=== PATIENT | female | born 1935 | race Caucasian/White ===

== ENCOUNTER 2016-07-12 20:37 | Inpatient (IN) | payer MEDICARE, OTHER ==
[2016-07-12 20:40] VITALS: BP 151/61; PULSE 79; RESP 12; O2SAT 97
--- NOTE | 2016-07-12 20:40 | ED.REPORT ---
HPI-Neurologic Deficit Date of Service Jul 12, 2016 ED Provider: Dr. Merritt Genao MD An 81 year old female with a history of type II diabetes mellitus presents to the ED with stroke like symptoms that began at approx. 1430 this afternoon. Patient's last known normal was 1400. Patient presented with dysarthria, disorientation and difficulty ambulating. Her symptoms initially appeared just after 1400, but remained persistent throughout the evening. Daughter reports that the patient returned from an errand around 1700 and appeared agitated. Patient took a nap and woke up with symptoms still present. She currently takes glucamide. Family denies any cardiac history. Nursing Notes Stated Complaint: STROKE SYMPTOMS Nursing Notes Reviewed: Yes Allergies: Coded Allergies: No Known Allergies (Unverified , 07/12/16) General Time Seen by Provider: 20:40 Chief Complaint Other (Dysarthria) Hx Obtained From: Daughter Arrived By: Walk-in Sudden in Onset?: No (Last Known Well 1400) Onset Occurred: 5 - 8 hours ago Symptom Duration: Since onset Progression Since Onset: Unchanged Associated with: Reports: Balance problem Pertinent Negative: Pt denies other symptoms Recent Healthcare: No recent doctor visit, No recent hospitalization Risk Factors TPA Administration/Criteria Stroke Thrombolytic Therapy : TPA Administered Intravenously: No, exclusion criteria Past Medical History Past Medical History Notes: PCP: Dr. Dickens Past Medical History Diabetes Mellitus Past Surgical History Hysterectomy Smoking History Never Smoker Social History Alcohol Use: Denies alcohol use Other Social History: Good social support, Local resident Ambulatory Status Independent Review of Systems Review of Systems Note: Limited ROS per daughter Unable to Obtain ROS Patient condition Constitutional: Denies: Chills, Fever Respiratory: Denies: Shortness of breath GI: Denies: Vomiting Neurologic: Reports: Confusion (Disoriented ), Problem walking, Denies: Change LOC Psychiatric: Reports: Agitation Complete sys rev & neg: except as marked. Physical Exam Physical Exam Notes: Elderly female who is quite agitated. She does not follow commands, eyes are open spontaneously she does not answer orientation questions. Verbalizes repeatedly it hurts it hurts and hurts pointing to her AC intravenous line. She does the same thing and points to her blood pressure cuff. There is no consistent other reference to pain and no consistent response to palpation that would indicate pain. A stroke scale was attempted however the patient's agitation and limited cooperation making impossible. Initial Vital Signs Vital Signs (First) Date Time Temp Pulse Resp B/P Pulse Ox O2 Delivery O2 Flow Rate FiO2 07/12/16 20:40 79 12 151/61 97 Room Air Initial VS: Reviewed Extremities: Vascular intact, Neuro intact, No swelling, No tenderness Skin: Warm, Dry, No cyanosis General/Constitutional: Awake, Alert Behavior: Positive: Agitated (Upon examination ) Head / Eyes: Atraumatic, Normocephalic Respiratory / Chest: Atraumatic, Breath sounds NL, Breath sounds = bilat, No respiratory distress Cardiovascular: Heart rate NL, Regular rhythm, Heart sounds NL Neurologic: No motor deficits Mental Status: Positive: Confused NEURO: Unable to perform complete NIH stroke scale due to patient cooperatioon. No gross motor deficits appreciated Abdomen: Atraumatic, Soft, Non-tender Skin: Atraumatic, Color NL, Warm, Dry Interpretation & Diagnostics Lab Results Interpretation Result Diagram: 07/12/16 2100 07/12/16 2100 Test 07/12/16 21:00 07/12/16 21:30 White Blood Count 7.0th/mm3 (3.8-10.1) Red Blood Count 4.19mil/mm3 (3.90-5.20) Hemoglobin 13.4g/dL (12.0-15.6) Hematocrit 38.1% (35.0-46.0) Mean Corpuscular Volume 90.9fL (81-100) Mean Corpuscular Hemoglobin 32.0pg (27.0-35.0) Mean Corpuscular Hemoglobin Concent 35.2% (32.0-37.0) Red Cell Distribution Width 12.5% (12.3-15.4) Platelet Count 209bil/L (150-400) Neutrophils (%) (Auto) 53.1% (40-74) Lymphocytes (%) (Auto) 35.9% (14-46) Monocytes (%) (Auto) 7.1% (4-12) Eosinophils (%) (Auto) 3.1% (0-5) Basophils (%) (Auto) 0.7% (0-3) Prothrombin Time 11.3sec (8.1-12.5) Prothromb Time International Ratio 1.05ratio Activated Partial Thromboplast Time 24.6sec (22.8-33.0) Sodium Level 138mEq/L (134-144) Potassium Level 4.4mEq/L (3.5-5.2) Chloride Level 99mEq/L (97-108) Carbon Dioxide Level 21mmol/L (18-29) Blood Urea Nitrogen 31mg/dL (8-27) Creatinine 0.95mg/dL (0.57-1.00) Estimat Glomerular Filtration Rate 80mL/min (>59) Glucose Level 175mg/dL (60-99) Calcium Level 10.4mg/dL (8.5-10.1) Total Bilirubin 0.8mg/dL (0.0-1.2) Aspartate Amino Transf (AST/SGOT) 22U/L (0-50) Alanine Aminotransferase (ALT/SGPT) 20U/L (0-32) Alkaline Phosphatase 54U/L (25-165) Troponin T 0.010ug/L (0.0-0.011) Total Protein 7.6g/dL (6.4-8.4) Albumin 4.4g/dL (3.4-5.0) Hold Edwards Top Tube Received (Received) Urine Color Yellow (YELLOW) Urine Appearance Cloudy (CLEAR,HAZY) Urine pH 6.0 (5.0-8.0) Urine Specific [place] 1.015 (1.003-1.035) Urine Protein 30mg/dL (NEG,TRACE) Urine Glucose (UA) Negativemg/dL (NEGATIVE) Urine Ketones Negativemg/dL (NEGATIVE) Urine Occult Blood Small (NEGATIVE) Urine Nitrite Positive (NEGATIVE) Urine Bilirubin Negative (NEGATIVE) Urine Urobilinogen Normalmg/dL (NORMAL) Urine Leukocyte Esterase Moderate (NEGATIVE) Urine RBC 3-10/hpf (0-2) Urine WBC 11-50/hpf (0-5) Urine Epithelial Cells Occasional/hpf (NONE-MOD) Urine Crystals None seen (NONE SEEN) Urine Bacteria Many/hpf (NONE-FEW) Urine Hyaline Casts None/lpf (NONE) Urine Granular Casts None seen (NONE SEEN) Urine Waxy Casts None seen (NONE SEEN) Urine Red Blood Cell Casts None seen (NONE SEEN) Urine White Blood Cell Casts None seen (NONE SEEN) Urine Mucus None seen (None Seen) Urine Trichomonas None seen (NONE SEEN) Urine Yeast None (NONE SEEN) Urinalysis Comment None Urine Culture Reflexed Indicated ECG Interpretation ECG Interpretation: Sinus Rhythm Rate 77 Time: 21:01 Interpreted by: ED physician X-Ray Chest Interpretation Chest Xray Interpretation: IMPRESSION: No acute process. Dictated by: Moises Jacobo M.D. on 07/12/2016 at 20:57 Interpretation / Wet Read by: Interpret - Radiologist CT Head Interpretation IMPRESSION: No acute intracranial abnormality. Dictated by: Moises Jacobo M.D. on 07/12/2016 at 20:58 Study: Head CT no contrast Interpretation / Wet Read by: Interpret - Radiologist Re-Eval/Medical Decision Med Decision/Clinical Course Elderly female who is presenting with difficulty with speech and agitation. There is no obvious focal neurologic deficit appreciable however stroke is still within the differential in my opinion. She does have a urinary tract infection. This is not accompanied by fever, hypotension, WBC is normal. She is not a candidate for TPA based on last known normal time and in my opinion a presentation that is not fully consistent with acute ischemic stroke. Blood cultures have been obtained, we started Rocephin 2 g IV and gentle IV hydration. He was given lorazepam 1 mg IM with good results, when she had some recurrent agitation with a repeat IV start, was given Haldol 2.5 mg IV. She will be admitted to the hospitalist service. Son and daughter are at the bedside, CODE STATUS was discussed with them, she is to be full code. Re-Evaluation/Progress #1: Time of Eval: 22:12 Re-Evaluation/Progress Note: Patient is rechecked. Further exam is performed. Patient is currently agitated and family reports that this is not her baseline. She states that the IV is causing her discomfort. Re-Evaluation/Progress #2: Time of Eval: 23:32 Patient Status: Condition improved Re-Evaluation/Progress Note: Patient is sleeping comfortably. Code status is discussed with the patient's family. Patient would like to be full code. Re-Evaluation/Progress #3: Time of Eval: 23:41 Patient Status: Condition improved Re-Evaluation/Progress Note: Further examination is performed. Patient tolerates well. Consultation : Referral / Consult Name: Melida Martin DO Consulted With: Hospitalist Call Returned at: 23:23 Farmworker: Will see patient, Agrees with eval, Agrees with plan, Accepts admit Counseled Regarding: Diagnosis, Lab results, Need for admission Discharge & Departure Impression: Primary Impression: Agitation Additional Impressions: Urinary tract infection Urinary tract infection type: site unspecified Hematuria presence: without hematuria Qualified Code: N39.0 - Urinary tract infection, site not specified CVA (cerebral vascular accident) CVA mechanism: unspecified Qualified Code: I63.9 - Cerebral infarction, unspecified Disposition: ADMITTED TO HOSPITAL Discharge Condition All VS Reviewed: Yes Condition: Improved Referrals: Lizeth Dickens MD (PCP) Scribe Attestation Portions of this note were transcribed by Dana Bustos. I, Dr. Genao personally performed the history, physical exam and medical decision-making; I reviewed and confirmed the accuracy of the information in the transcribed note. Signed by: Prosper Delgado, 07/13/16 0000. copies to: Lizeth Dickens MD, Donald L MD Jul 12, 2016 20:40 DANA BUSTOS Jul 12, 2016 20:50
--- NOTE | 2016-07-12 20:59 | DRSVH ---
PROCEDURE: X-RAY CHEST ONE VIEW, PORTABLE ([id number]) INDICATIONS: CVA symptoms TECHNIQUE: One view of the chest was acquired. COMPARISON: [facility], , CHEST 2 VIEW, 01/06/2013, 15:43. FINDINGS: Surgical changes and devices: Cervical fusion hardware is present. Lungs and pleura: No pleural effusions or pneumothorax. Lungs are clear. Mediastinum: Mediastinal contours appear normal. Heart size is normal. Bones and chest wall: No suspicious bony lesions. Overlying soft tissues appear unremarkable. IMPRESSION: No acute process. Dictated by: Moises Jacobo M.D. on 07/12/2016 at 20:57 Approved by: Moises Jacobo M.D. on 07/12/2016 at 20:57
--- NOTE | 2016-07-12 21:00 | DRSVH ---
PROCEDURE: CT BRAIN WITHOUT CONTRAST ([id number]) INDICATIONS: Stroke TECHNIQUE: Noncontrast 4.5 mm thick angled axial sections acquired from the foramen magnum to the vertex, with c oronal reformats. COMPARISON: None. FINDINGS: Image quality: Excellent. CSF spaces: Basal cisterns are patent. No extra-axial fluid collections. The ventricles are symmet kasie in size and shape. Brain: No intracranial bleeds or masses. There is cerebral volume loss for age, with resultant vent ricular and sulcal prominence. There are periventricular and deep white matter chronic small vessel ischemic changes. There is intracranial internal carotid artery atherosclerosis. Skull and face: Calvarium and visualized facial bones appear intact, without suspicious lesions. Sinuses: There is opacification of a left posterior ethmoid air cell. Visualized sinuses and mastoids are otherwise clear. IMPRESSION: No acute intracranial abnormality. Dictated by: Moises Jacobo M.D. on 07/12/2016 at 20:58 Approved by: Moises Jacobo M.D. on 07/12/2016 at 20:58
[2016-07-12 21:10] LABS: BASOPHILS % (AUTO) 0.7 % (0-3); EOSINOPHILS % (AUTO) 3.1 % (0-5); MONOCYTES % (AUTO) 7.1 % (4-12); Mean Corpuscular Volume 90.9 fL (81-100); NEUTROPHILS % (AUTO) 53.1 % (40-74); Platelet Count 209 bil/L (150-400)
[2016-07-12 21:27] LABS: INR 1.05 ratio
[2016-07-12 21:54] LABS: TROPONIN T 0.01 ug/L (0.0-0.011)
[2016-07-12 22:00] LABS: APPEARANCE,URINE CLOUDY (CLEAR,HAZY); COLOR,URINE YELLOW (YELLOW); OCCULT BLOOD,URINE SMALL (NEGATIVE); UROBILINOGEN,URINE NORMAL (NORMAL)
[2016-07-12] MEDS ORDERED: cefTRIAXone Inj 2,000 MG in Dextrose 5% Minibag Plus 50 ML IV ONE (22:20)
[2016-07-12 22:44] VITALS: BP 145/85; PULSE 85; RESP 22; O2SAT 99
[2016-07-13] VITALS (7 sets, daily range): BP systolic 107–152; BP diastolic 55–81; PULSE 75–100; RESP 16–20; O2SAT 94–100
[2016-07-13] MEDS ORDERED: Haloperidol 5 mg/mL Inj IVPUSH ONE
[2016-07-13] MEDS ORDERED: Alum-Mag Hydrox-Simeth 30 mL Suspension PO PRN (00:25)
[2016-07-13] MEDS ORDERED: Polyethylene Glycol (PEG) 17 Gm Powder PO PRN (00:25)
[2016-07-13] MEDS ORDERED: Ondansetron 2 mg/mL 2 mL Inj IVPUSH PRN (00:25)
[2016-07-13] MEDS: 0.9% Sodium Chloride 1,000 ML IV SCH ×2 (01:12→10:45)
[2016-07-13] MEDS ORDERED: LORazepam 0.5 mg Tablet PO PRN ×2 (01:20→01:55)
[2016-07-13] MEDS ORDERED: Glucose 40% Oral Gel 15 Gm Tube PO PRN (01:20)
[2016-07-13] MEDS ORDERED: Haloperidol 5 mg/mL Inj IM PRN ×2 (01:20→01:55)
[2016-07-13] MEDS ORDERED: Labetalol 5 mg/mL 4 mL Inj IVPUSH ONE (01:20)
--- NOTE | 2016-07-13 01:23 | NUR ---
Admit Note Pt. arrived on floor at 0035. Pt. was agitated, and could not make full sentences, also very confused. Sawyer bed alarm in place. Family in room to help complete admit. Pt's peripheral IV intact and patent. IVF ongoing. Will continue to monitor.
[2016-07-13] MEDS ORDERED: MeTOProlol 1 mg/mL 5 mL Inj IV PRN (01:55)
--- NOTE | 2016-07-13 02:10 | PCM.HPMED ---
Subjective Date of Service Jul 13, 2016 Primary Provider: Admitting Physician: Melida Martin DO Primary Care Physician: Lizeth Dickens MD Attending Physician: Melida Martin DO Chief Complaint: Stroke symptoms History of Present Illness: Patient is a 81 y.o. F with past medical history of DM type II, HTN. She presented to the ED with stroke like symptoms that began around 1400 and acutely worsened at about 1700 this evening, per family report. Family stated that patient was doing well earlier today, ran errands, when she returned home she went to lay down for a nap, upon waking she was noted to be weak, confused, increased agitation, changes in speech. Family reports that patient at base line walks with cane independently, is alert and oriented to person, place time , has never had any episodes of confusion or agitation like this, has not had slurred speech. Family stated that symptoms are still present and they noticed mild chagne with sedation and IVF in ED, however they are still concerned about her confusion, and altered speech. At time of examination patient is mildly agitated, confused, responsive, able to answer yes and no questions only. Denies pain, dysuria, abdominal pain, fever, chills, headache, loss of vision. History limited due to AMS of patient. Review of Systems: ROS otherwise negative except at mentioned in HPI Allergies Coded Allergies: No Known Allergies (Unverified , 07/12/16) Home Medications Ayaka Nunez [id number] 1935 04/10/2016 03:40 PM 04/20 Medication Name Directions aspirin 81 mg tablet,delayed release take 1 tablet by oral route every day biotin 1 every other day Co Q-10 200 mg capsule 1 every other day Crestor 5 mg tablet take 1 tablet by ORAL route every evening for high cholesterol. Daily Multiple tablet take 1 tablet by oral route every day with food Fiber Therapy daily glipizide 5 mg tablet take 1 tablet by oral route 2 times every day before meals for diabetes. Glucosamine Msm take 0.5 tablet daily losartan 25 mg tablet take 2 tablet by ORAL route every day for high blood pressure. magnesium 400mg every other day meloxicam 7.5 mg tablet take 1 tablet by oral route every day metformin 1,000 mg tablet take 1 tablet by oral route 2 times every day with morning and evening meals for diabetes. oxybutynin chloride 5 mg tablet take 1 tablet by oral route every day for bladder. Kuldeep-E 400 mg tablet take 1 tablet 3 days a week VITAMIN B-12 take 1 tablet by oral route every other day Vitamin D3 2,000 unit capsule take 1 Capsule by Oral route once PMH DM II HTN SCC skin Osteoarthritis Surgical History Hysterectomy Family History Mother age 40 due to cardiac event, unknown specifics No family history of cancer Daughter with DM, HTN Social History Hx Alcohol Use: No Hx Substance Use: No Hx Tobacco Use: No Smoking Status: Never Smoker Exam Vital Signs Vital Sign - Last Date Time Temp Pulse Resp B/P Pulse Ox O2 Delivery O2 Flow Rate FiO2 07/13/16 00:33 78 18 143/61 100 Room Air Exam General: No acute distress, well-developed, well-nourished, uncooperative, HEENT: Normocephalic, atraumatic. External ears without defect. Pupils equal, round, and reactive to light and accommodation. Anicteric sclerae, moist conjunctivae, and no lid lag. Oropharynx dry/pink oral mucosa Neck: Supple with full range of motion. No jugular venous distension. No bruits. No lymphadenopathy or thyromegaly. Cardiovascular: Regular rate and rhythm with no murmurs, rubs, or gallops appreciated Pulmonary: Clear to auscultation bilaterally with no crackles, wheezes, or rhonchi. Normal respiratory effort with no use of accessory muscles. Abdomen: Bowel tones present. Soft, nontender, nondistended. No hepatosplenomegaly or masses appreciated. Extremities: No clubbing, cyanosis, edema, or lymphadenopathy appreciated. delayed capilalry refill, good muscle bulk, no focal weakness strength 5/5 in all extremities bilaterally Skin: Normal temperature,dry,warm, poor turgor, and texture; no rash, ulcers, or subcutaneous nodules appreciated. Neurologic: Patient grossly neurologically intact, CN II-VIII grossly intact CN IX, X, XII difficult to assess due to patient cooperation. babinski difficult to assess due to patient agitation, DTR +2 in all extremity, NIH: 4 Slurred speech, dysarthria, anomic dysphasia, patient oriented to person only. cannot recall month or age, follows basic commands open close eyes hand global account director without deficit bilaterally, no nystagmus, EMOI intact, no visual field defect, no facial palsy, no pronator drift (although difficult to determine due to agitation, patient able to sit up in bed with minimal help), Patient able to ambulate without ataxia, moderate dysarthria, anomic aphasia, sensation intact. Psychiatric: Agitated, uncooperative. Alert and oriented to person only. Lymphatic: No lymphadenopathy on exam Lab and Diagnostics Result Diagram: 07/12/16209907/12/162099 X-Rays, CTs and MRIs Chest Xray IMPRESSION: No acute process. Dictated by: Moises aJcobo M.D. on 07/12/2016 at 20:57 CT Head IMPRESSION: No acute intracranial abnormality. Dictated by: Moises Jacobo M.D. on 07/12/2016 at 20:58 12-lead ECG ECG Interpretation: Sinus Rhythm Rate 77 Time: 21:01 Interpreted by: ED physician Reviewed, agree with interpretation Assessment & Plan Patient is a 81 y.o. F with past medical history of DM type II, HTN, Hyperlipidemia. Admitted for agitation, confusion, UTI. 1. UTI, acute - postive UA for many bacteria, sent for culture - WCT normal 7.0, afebrile on admit, NSR on EKG, BP elevated - Procal, pending - lactic acid, pending - Blood cultures pending - Continue Rocephin IV - IVF NS @ 100 mls hr - Repeat CBC and BMP in AM 2. Acute encephalopathy - Patient has AMS from baseline per family, with signs of dysarthria, agitation , confusion, Consider altered mentation due to acute infection from UTI, dehydration, TIA, new onset dementia. Etiology difficult to assess due to patient agitation, and lack of cooperation, Clinically the patient appears dehydrated and UA showed evidence of UTI, however at this time cannot rule out TIA (Risk factors include Age, Uncontrolled HTN, DMII) - CT scan negative for acute intra cranial changes - WCT normal 7.0 - NIH stroke Scale 4 - Start Plavix 300 mg then 75 mg QD - Atorvastatin 40 mg - MRI stroke protocol ordered - ECHO in AM ordered - Allow for permissive HTN - IV metoprolol 2.5 mg for BP > 220/120 - Pharmacy out of IV labetalol - Continue IVF as above - Repeat CBC in AM - Keep NPO until swallow eval completed 3. Dehydration, acute - Continue IVF as above #1 - Repeat BMP in AM - Monitor volume status Chronic Conditions DM Type II - BG on admission 175 - Hold home meds - Start med dose correctional scale - Last A1C 7.7 03/2016 HTN - Last outpatient visit 03/2016 patient had uncontrolled HTN and lisinopril was increased to 50 mg QD - Allow for permissive HTN - IV metoprolol 2.5 mg for BP > 220/120 - Pharmacy out of IV labetalol Hyperlipidemia - Continue Statin CODE STATUS FULL CODE discussed with patient's family they stated patient's wishes were to be resuscitated, Son and daughter think that their mother has a living will and will bring it tomorrow to confirm wishes. DVT: SCDs Patient is admitted under observation status with expected length of stay less than 2 midnights due to severity of presenting symptoms, risk of adverse event, Pain Evaluation: Adequate Pain Control VTE Prophylaxis: SCDs Resuscitation Status: CPR: Attempt Resuscitation Attending Statement The patient was seen and examined together with house staff on 07/12/2016 and I agree with the history, exam and plan as outlined in the note above. ACOSTA NEGRO DO Jul 13, 2016 00:43 Melida Martin DO Jul 13, 2016 04:27
[2016-07-13] MEDS ORDERED: ASPI-973 PO (02:50)
[2016-07-13] MEDS ORDERED: MULT-1018 PO (02:50)
[2016-07-13] MEDS ORDERED: ROSU5TAB PO (02:50)
[2016-07-13] MEDS ORDERED: LOSA25TA21 PO (02:50)
[2016-07-13] MEDS ORDERED: OXYB5TAB10 PO (02:50)
[2016-07-13] MEDS ORDERED: UBID200C2 PO (02:50)
[2016-07-13] MEDS ORDERED: MELO-259 PO (02:50)
[2016-07-13] MEDS ORDERED: S-AD400T5 PO (02:50)
[2016-07-13] MEDS ORDERED: CHOL200047 PO (02:50)
[2016-07-13] MEDS ORDERED: METF1000 PO (02:50)
[2016-07-13] MEDS ORDERED: MAGN400T39 PO (02:50)
[2016-07-13] MEDS ORDERED: GLUC1CAP8 PO (02:50)
[2016-07-13] MEDS ORDERED: GLPZ5T PO (02:50)
[2016-07-13 06:12] LABS: BASOPHILS % (AUTO) 0.6 % (0-3); EOSINOPHILS % (AUTO) 0.5 % (0-5); MONOCYTES % (AUTO) 8.8 % (4-12); Mean Corpuscular Hemoglobin 31.7 pg (27.0-35.0); Mean Corpuscular Volume 91.2 fL (81-100); NEUTROPHILS % (AUTO) 64.1 % (40-74); Platelet Count 187 bil/L (150-400)
--- NOTE | 2016-07-13 06:38 | NUR ---
Mentation Pt. was agitated during attempted IV start. PO Ativan dose given for agitation. Will pass on to day shift.
[2016-07-13 06:44] LABS: TROPONIN T 0.01 ug/L (0.0-0.011)
[2016-07-13] MEDS: Insulin LISPRO 300 Unit/3 mL Inj SUBQ SCH ×3 (09:22→17:15)
--- NOTE | 2016-07-13 10:30 | NUR ---
Evaluation completed. Please go to "Notes" then click on "Assessments and Notes" (bottom left corner of screen). Then select appropriate discipline tab on top of screen.
--- NOTE | 2016-07-13 11:36 | NUR ---
MENTATION Patient is alert and oriented X 4. Answers questions appropriately. Equal strength in her BUE/BLE. No facial drooping noted. Denies numbness/tingling. PT/OT to piotr. Patient was seen by SPT. Diet was advanced to a general diet.
[2016-07-13] MEDS ORDERED: cefTRIAXone Inj 2,000 MG in Dextrose 5% Minibag Plus 50 ML IV SCH (12:00)
--- NOTE | 2016-07-13 14:27 | DRSVH ---
PROCEDURE: MRI STROKE PROTOCOL ([id number]) Pre- and post-contrast brain MRI, non-contrast brain MR angiogram, pre- and postcontrast neck MR willy ogram INDICATIONS: AMS with Dysartria, and aphasia TECHNIQUE: Brain: Noncontrast axial T1 spin echo, axial T2 fast spin echo, sagittal and axial FLAIR, coronal T2 fast spin echo, axial gradient echo, axial diffusion and ADC through the brain. After the administr ation of contrast, axial 3D VIBE of the cranial vasculature and brain. Brain MRA: Non-contrast 3-D time of flight MR angiogram, with multiple bxkkipw-zkxeuvgvs-bpnpjmxhkh (MIP) reformats performed. Neck MRA: Axial and sagittal TruFISP through the neck. Coronal dynamic MR angiogram during administ ration of contrast in the arterial and venous phases, with 3-dimenstional farxvco-xyljxkfeh-gfvezwhfc n (MIP) reformats constructed from subtraction images. COMPARISON: None. FINDINGS: Image quality: Excellent. BRAIN: CSF spaces: Ventricles are normal in size and shape. Basal cisterns are patent. No extra-axial flu id collections. Brain: No intracranial bleeds or mass effects. There is moderate cerebral volume loss. Moderate wanda ventricular white matter chronic small less ischemic changes are present. Diffusion weighted images show no acute ischemic insults. Brainstem appears normal. Normal intravascular flow voids are prese nt. No abnormal intracranial enhancement. Skull and face: Calvarial marrow signal is normal. Orbits appear normal. Sinuses: Sinuses and mastoids are clear. BRAIN MR ANGIOGRAM: Anterior circulation: Intracranial internal carotid arteries are normal in size and enhancement. Th e flow within the paired anterior cerebral arteries is normal and symmetric. The flow within the mid dle cerebral arteries is normal and symmetric. The anterior communicating artery is seen. No stenos es, occlusions, or aneurysms. Posterior circulation: The visualized portions of the vertebral arteries demonstrate normal caliber, and join to form a normal appearing basilar artery. The flow within the posterior cerebral arteries is normal and symmetric. No stenoses, occlusions, or aneurysms. NECK MR ANGIOGRAM: Carotids: Great vessels demonstrate a conventional anatomy as they arise from the aortic arch. The origins of the common carotid arteries appear patent. The calibers and courses of both common caroti d arteries are normal. The bifurcation regions appear normal bilaterally. The internal carotid hafsa dayana demonstrate normal course and caliber. Posterior circulation: The origins of the vertebral arteries are suboptimally seen but appear patent . More superior portions of both vertebral arteries demonstrate normal course and caliber, and join to form a normal appearing basilar artery. Miscellaneous: Subclavian arteries appear patent. Pre-contrast images through the neck show no soft tissue abnormalities. IMPRESSION: BRAIN MRI: 1. No acute intracranial abnormalities. 2. Cerebral volume loss and chronic microvascular ischemic changes. BRAIN MR ANGIOGRAM: No high-grade stenosis in anterior or posterior circulations. NECK MR ANGIOGRAM: 1. Normal cervical carotid arteries bilaterally. 2. The vertebral artery origins are suboptimally visualized; otherwise no significant stenosis or occ lusion in vertebral arteries bilaterally. The estimate of stenosis included in the report of the imaging study was calculated using the NASCET method Dictated by: Kenji Menjivar M.D. on 07/13/2016 at 14:22 Transcribed by: NASRIN on 07/13/2016 at 14:27 Approved by: Kenji Menjivar M.D. on 07/13/2016 at 20:41
--- NOTE | 2016-07-13 15:12 | NUR ---
Evaluation completed. Please go to "Notes" then click on "Assessments and Notes" (bottom left corner of screen). Then select appropriate discipline tab on top of screen.
--- NOTE | 2016-07-13 16:39 | PCM.DIMED ---
Discharge Instructions Date of Service Jul 13, 2016 Dates of Hospitalization Jul 12, 2016 at 23:39 Discharge Diagnosis Discharge Diagnosis TIA, aphasia possible dehydration and symptomatic UTI versus colonization Test Results CT and MRI brain normal no evidence of stroke Diet Heart Healthy, Diabetic Activity No restrictions Call your provider Weakness (unilateral), Other (speech issues) Patient Instructions If you have beach problems and difficulty finding words the same, back to the emergency room immediately to be assessed for stroke Follow-up plan Primary care provider call for an appointment to discuss events and neurology in about a month to discuss aspirin/Plavix and risk medication Follow-up with PCP in: 1 week Provider: Adam Spencer MD Follow-up in: Other (call for an appointment immediately probably in about 4 weeks to discuss aspirin and Plavix) Shakeel Mancia MD Jul 13, 2016 16:39
[2016-07-13] MEDS ORDERED: CLOP75TA28 PO (16:50)
[2016-07-13] MEDS ORDERED: LACT1CAP44 PO (16:59)
[2016-07-13] MEDS ORDERED: CEPH-512 PO (16:59)
--- NOTE | 2016-07-13 17:32 | DRSVH ---
[facility] [address] [place] [address] Echocardiogram Report Name: TERRY SMITH Study Date: 07/13/2016 Height: 65 in Hospital Exam Location: [facility] Weight: 178 lb Gender: Female BSA: 1.9 m2 : 1935 Age: 81 yrs BP: 152/81 mm Hg Reason For Study: TIA Ordering Physician: [facility]OSPITALIST [facility] Performed By: Zohra Hooper Referring Physician: Dr Lizeth Dickens Interpretation Summary The left ventricle is normal in size. The left ventricle is hyperdynamic. The ejection fraction is estimated to be 70-75%. There is no LV thrombus. The right ventricle is normal in size and function. There is mild to moderate mitral regurgitation. There is mild to moderate aortic regurgitation. Procedure: A two-dimensional transthoracic echocardiogram with color flow and Doppler was performed. The study quality was technically adequate. There is no prior echocardiogram noted for this patient. The patient was in normal sinus rhythm during the exam. Left Ventricle: The left ventricle is normal in size. Proximal septal thickening is noted. There is no echo evidence for significant left ventricular outflow tract obstruction. There is no thrombus. A false chord is noted (normal variant). The ejection fraction is estimated to be 70-75%. The left ventricle is hyperdynamic. There are no focal wall motion abnormalities. Spectral Doppler of the mitral valve is reversed, with an E/A wave ratio < 1.0. Right Ventricle: The right ventricle is normal in size and function. Atria: The left atrium is mildly dilated. Right atrial size is normal. A prominent eustachian valve is noted. There is no Doppler evidence for an atrial septal defect. The interatrial septum is intact with no evidence for an atrial septal defect. Mitral Valve: There is moderate mitral annular calcification. The mitral valve leaflets are mildly calcified. The mitral valve chordae are thickened and/or calcified. There is slight prolapse of posterior mitral leaflet in apical view. No significant mitral valve stenosis. There is mild to moderate mitral regurgitation. Aortic Valve: The aortic valve is trileaflet. There is mild aortic valve sclerosis. There is no aortic valve stenosis. There is mild to moderate aortic regurgitation. Tricuspid Valve: The tricuspid valve leaflets are thin and pliable. The right ventricular systolic pressure is estimated at 28 mmHg assuming a right atrial pressure of 8 mm Hg. There is trace tricuspid regurgitation. Pulmonic Valve: The pulmonic valve is not well visualized. There is no pulmonic valvular regurgitation. Great Vessels: The aortic root is normal size. The dimensions of the ascending aorta are normal. The pulmonary artery is normal size. The IVC is of normal diameter and collapses greater than 50% with a sniff. This suggests a low right atrial pressure of 3 mm Hg. Pericardium/ Pleura There is no pericardial effusion. There is an anterior echo-free space consistent with a fat pad. There is no pleural effusion. MMode/2D Measurements & Calculations LVIDd: 3.9 cm LA dimension: 3.6 cm RA long axis LVOT diam: 1.9 cm LVIDs: 2.1 cm AoV Opening FS: 44.5 % LA A2 area: 19.0 cm RA area IVSd: 0.90 cm LA A4 area: 21.1 cm Ao root diam LVPWd: 0.91 cm LA length (vol) : 16.3 cm RA vol asc Aorta Diam LA vol: 66.6 ml : 46.7 ml LA vol index RA Ao Arch Diam (Prox : 24.8 mm/ Trans): 2.5 cm RVDd major IVC diam: 1.5 cm : 5.3 cm LV price. diameter/BSA LV sys. diameter/BSA RVD1 (basal) RVD2 (mid): 3.0 cm (cm/m^2): 2.0 (cm/m^2): 1.1 Doppler Measurements & Calculations Ao V2 max MV E max adair MV E/A: 0.87 TR max adair : 178.4 cm/sec : 109.5 cm/sec Med Peak E' Adair : 250.1 cm/sec Ao max PG MV A max adair TR max PG : 12.7 mmHg : 125.4 cm/sec E/E' med: 17.7 : 25.0 mmHg Ao mean PG MV P1/2t: 86.2 msec Lat Peak E' Adair PA V2 max : 88.0 cm/sec LVOT Max Adair E/E' lat: 16.2 PA mean PG : 117.6 cm/sec E/e' average: 17.0 DREA(I,D): 2.0 cm Pulm A Revs Dur PA Accel Time sev ratio : 0.13 sec MV A dur: 0.15 sec AI P1/2t : 447.7 msec AI dec slope : 242.7 cm/s2c MV dec time MV P1/2t max adair Ao V2 mean LV V1 max PG : 0.29 sec : 131.4 cm/sec MVA(P1/2t): 2.6 cm2 Ao V2 VTI: 41.5 cm LV V1 VTI DREA(V,D): 1.9 cm2 : 28.0 cm PA V2 mean DREA indexed to BSA Pulm A Revs Dur - MV : 67.2 cm/sec (cm^2/m^2): 1.1 A Dur: -0.00 msec Reading Physician:GIBRAN
--- NOTE | 2016-07-13 17:53 | NUR ---
DISCHARGE Patient is alert and oriented X 4. Answers questions appropriately. BUE/BLE strength is equal in strength. No facial drooping noted. Answers questions appropriately. Denies pain. Tolerating her diet. Denies nausea. No emesis noted. Denies SOB. Patient has been able to ambulate in the hallway and in the room with SBA. Per patient she is back to her usual baseline. Per her daughter she has a cane at home. Cleared by PT to D/C to home. Voiding without any problems. IV d/cd. Discharge instructions, care notes and prescription was given to the patient and her daughter Vanda. They both verbalized understanding. Discharged to home with her daughter and all her personal belongings. (Copy of D/C is in the chart). Echo completed prior to D/C. Dr. Mancia to review and inform patient for any abnormal findings.l
--- NOTE | 2016-07-13 19:09 | PCM.DC.MED ---
Discharge Summary Date of Service Jul 13, 2016 Dates of Hospitalization Date of Hospital Admission Jul 12, 2016 at 23:39 Date of Discharge: Jul 13, 2016 Providers: Admitting Physician: Melida Martin DO Primary Care Physician: Lizeth Dickens MD Attending Physician: Melida Martin DO Diagnosis at Time of Discharge Diagnosis at Time of Discharge TIA, aphasia possible dehydration and symptomatic UTI versus colonization Procedures XRay, CTs & MRIs Chest Xray IMPRESSION: No acute process. Dictated by: Moises Jacobo M.D. on 07/12/2016 at 20:57 CT Head IMPRESSION: No acute intracranial abnormality. Dictated by: Moises Jacobo M.D. on 07/12/2016 at 20:58 ECG 12 Lead ECG Interpretation: Sinus Rhythm Rate 77 Time: 21:01 Interpreted by: ED physician Reviewed, agree with interpretation Other Diagnostics Echo 07/13 Interpretation Summary The left ventricle is normal in size. The left ventricle is hyperdynamic. The ejection fraction is estimated to be 70-75%. There is no LV thrombus. The right ventricle is normal in size and function. There is mild to moderate mitral regurgitation. There is mild to moderate aortic regurgitation. Brief History Patient is a 81 y.o. F with past medical history of DM type II, HTN. She presented to the ED with stroke like symptoms that began around 1400 and acutely worsened at about 1700 this evening, per family report. Family stated that patient was doing well earlier today, ran errands, when she returned home she went to lay down for a nap, upon waking she was noted to be weak, confused, increased agitation, changes in speech. Family reports that patient at base line walks with cane independently, is alert and oriented to person, place time , has never had any episodes of confusion or agitation like this, has not had slurred speech. Family stated that symptoms are still present and they noticed mild chagne with sedation and IVF in ED, however they are still concerned about her confusion, and altered speech. At time of examination patient is mildly agitated, confused, responsive, able to answer yes and no questions only. Denies pain, dysuria, abdominal pain, fever, chills, headache, loss of vision. Hospital Course Patient is a 81 y.o. F with past medical history of DM type II, HTN, Hyperlipidemia. Admitted for agitation, confusion, UTI. 07/13 patient got a dose of Ativan overnight was very sleepy initially but then woke up and was perfectly lucid speech returned to normal. Her urine is not overtly infected however because of the symptoms I am going to go ahead and treated starting with Keflex 500 mg 4 times a day for 5 days Escherichia coli was growing sensitivities were not back at the time of discharge. The remainder of her workup was unrevealing she was back to baseline according to family and patient. She was discharged in stable improved condition after complete TIA/CVA workup was obtained. At the time of discharge the echo result was not known to this totally normal I told him I would call them if there was an abnormality. I also told him they may need to contact her primary care provider on Saturday to determine whether the Keflex was the appropriate antibiotic. 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 I recommend that she see a neurologist within that time to parse these nuances out. 1. UTI, acute - postive UA for many bacteria, sent for culture, growing Escherichia coli but appears contaminated/colonized - WCT normal 7.0, afebrile on admit, NSR on EKG, BP elevated -Sensitivities are pending patient discharged with Keflex 500 4 times a day for 5 days 2. Acute encephalopathy-based on description this sounds like a TIA with aphasia resolved - CT scan negative for acute intra cranial changes - Start Plavix 300 mg then 75 mg QD - Atorvastatin 40 mg - MRI no abnormalities 07/13 - ECHO no abnormalities 07/13 - Resuming home meds 3. Dehydration, acute - Continue IVF as above #1 possibly could have contributed Chronic Conditions DM Type II - BG on admission 175 - Hold home meds - Start med dose correctional scale - Last A1C 7.7 03/2016 -Resuming regular on discharge HTN-no changes to home regimen Hyperlipidemia - Continue Statin CODE STATUS FULL CODE discussed with patient's family they stated patient's wishes were to be resuscitated, Son and daughter think that their mother has a living will and will bring it tomorrow to confirm wishes. DVT: SCDs Patient discharged home after workup was complete and events resolved, I discussed details extensively with her son who is at the bedside the patient seemed perfectly lucid and coherent. Complete physical exam was never done because the patient was doing so well. Exam Vital Signs (Last) Date Time Temp Pulse Resp B/P Pulse Ox O2 Delivery O2 Flow Rate FiO2 07/13/16 13:54 36.5 75 16 107/55 96 Room Air Exam Gen-elderly female initially sleeping that night woke up sitting up in chair when I saw her conversing coherently oriented 3 no apparent distress Eyes- open conjunctiva clear, pupils equal nonicteric Mouth- oral mucosa moist, no exudate ENT- ears normal, nose normal Neck- supple/trach midline CVS- RRR Lungs-regular and nonlabored GI-flat Musc- moving 4 no obvious deformity Neuro- cranial nerves II through XII intact to gross examination, nonfocal Skin- warm and dry, no rashes/lesions/wounds noted Psych- pleasant and appropriate, Test 07/12/16 21:00 07/12/16 21:30 07/13/16 00:00 07/13/16 05:48 Prothrombin Time 11.3sec (8.1-12.5) Prothromb Time International Ratio 1.05ratio Activated Partial Thromboplast Time 24.6sec (22.8-33.0) Lactic Acid Level 1.3mmol/L (0.4-2.0) Total Bilirubin 0.8mg/dL (0.0-1.2) Aspartate Amino Transf (AST/SGOT) 22U/L (0-50) Alanine Aminotransferase (ALT/SGPT) 20U/L (0-32) Alkaline Phosphatase 54U/L (25-165) Total Protein 7.6g/dL (6.4-8.4) Albumin 4.4g/dL (3.4-5.0) Hold Edwards Top Tube Received (Received) Urine Color Yellow (YELLOW) Urine Appearance Cloudy (CLEAR,HAZY) Urine pH 6.0 (5.0-8.0) Urine Specific [place] 1.015 (1.003-1.035) Urine Protein 30mg/dL (NEG,TRACE) Urine Glucose (UA) Negativemg/dL (NEGATIVE) Urine Ketones Negativemg/dL (NEGATIVE) Urine Occult Blood Small (NEGATIVE) Urine Nitrite Positive (NEGATIVE) Urine Bilirubin Negative (NEGATIVE) Urine Urobilinogen Normalmg/dL (NORMAL) Urine Leukocyte Esterase Moderate (NEGATIVE) Urine RBC 3-10/hpf (0-2) Urine WBC 11-50/hpf (0-5) Urine Epithelial Cells Occasional/hpf (NONE-MOD) Urine Crystals None seen (NONE SEEN) Urine Bacteria Many/hpf (NONE-FEW) Urine Hyaline Casts None/lpf (NONE) Urine Granular Casts None seen (NONE SEEN) Urine Waxy Casts None seen (NONE SEEN) Urine Red Blood Cell Casts None seen (NONE SEEN) Urine White Blood Cell Casts None seen (NONE SEEN) Urine Mucus None seen (None Seen) Urine Trichomonas None seen (NONE SEEN) Urine Yeast None (NONE SEEN) Urinalysis Comment None Urine Culture Reflexed Indicated Procalcitonin 0.04ng/mL (0.00-0.08) White Blood Count 8.2th/mm3 (3.8-10.1) Red Blood Count 3.75mil/mm3 (3.90-5.20) Hemoglobin 11.9g/dL (12.0-15.6) Hematocrit 34.2% (35.0-46.0) Mean Corpuscular Volume 91.2fL (81-100) Mean Corpuscular Hemoglobin 31.7pg (27.0-35.0) Mean Corpuscular Hemoglobin Concent 34.8% (32.0-37.0) Red Cell Distribution Width 12.3% (12.3-15.4) Platelet Count 187bil/L (150-400) Neutrophils (%) (Auto) 64.1% (40-74) Lymphocytes (%) (Auto) 25.9% (14-46) Monocytes (%) (Auto) 8.8% (4-12) Eosinophils (%) (Auto) 0.5% (0-5) Basophils (%) (Auto) 0.6% (0-3) Sodium Level 136mEq/L (134-144) Potassium Level 4.4mEq/L (3.5-5.2) Chloride Level 99mEq/L (97-108) Carbon Dioxide Level 23mmol/L (18-29) Blood Urea Nitrogen 26mg/dL (8-27) Creatinine 0.92mg/dL (0.57-1.00) Estimat Glomerular Filtration Rate 84mL/min (>59) Glucose Level 210mg/dL (60-99) Calcium Level 9.9mg/dL (8.5-10.1) Troponin T 0.010ug/L (0.0-0.011) Triglycerides Level 135mg/dL (0-149) Cholesterol Level 176mg/dL (100-199) LDL Cholesterol, Calculated 94.000mg/dL (0-99) VLDL Cholesterol 27.000mg/dL HDL Cholesterol 55mg/dL (>39) Cholesterol/HDL Ratio 3.20 (0.0-4.4) Discharge Medications Discharge Medications Aspirin (Aspirin) 81 Mg Tablet 81 MG PO DAILY (Reported) Cephalexin (Keflex) 500 Mg Capsule 500 MG PO QID Prescribed by: DOMINGUEZ RAMAN MD Clopidogrel (Clopidogrel) 75 Mg Tablet 75 MG PO DAILY Prescribed by: DOMINGUEZ RAMAN MD Glipizide (Glipizide) 5 Mg Tablet 5 MG PO BIDAC (Reported) Gluc Montero/MSM/Magnesium/Vit C (Glucosamine Complex-MSM Cap) 1 Each Capsule 0.5 TAB PO DAILY (Reported) Lactobacillus Acidophilus (Acidophilus Lactobacillus) 1 Each Capsule 1 EACH PO DAILY Prescribed by: DOMINGUEZ RAMAN MD Magnesium Oxide (Magnesium) 400 Mg Tablet 400 MG PO Q2DAY (Reported) Metformin (Glucophage) 1,000 Mg Tablet 1,000 MG PO BIDWM (Reported) Multivitamin (Multi Vitamin Daily) 1 Each Tablet 1 EACH PO DAILY (Reported) Oxybutynin Chloride (Oxybutynin Chloride) 5 Mg Tablet 5 MG PO DAILY (Reported) Rosuvastatin Calcium (Crestor) 5 Mg Tablet 5 MG PO HS (Reported) Miscellaneous Medications Cholecalciferol (Vitamin D3) (Vitamin D3) 2,000 Unit Capsule 2,000 UNIT PO ( Reported) Losartan Potassium (Losartan Potassium) 25 Mg Tablet 50 MG PO (Reported) S-Adenosylmethionine Sul Tosyl (Kuldeep-E) 400 Mg Tablet 400 MG PO (Reported) Ubidecarenone (Co Q-10) 200 Mg Capsule 200 MG PO (Reported) Followup Plan Follow-up plan Primary care provider call for an appointment to discuss events and neurology in about a month to discuss aspirin/Plavix and risk medication Discharge Diet: Heart Healthy, Diabetic Discharge Activity: No restrictions Patient Instructions If you have beach problems and difficulty finding words the same, back to the emergency room immediately to be assessed for stroke Follow-up with PCP in: 1 week Provider: Adam Spencer MD Follow-up in: Other (call for an appointment immediately probably in about 4 weeks to discuss aspirin and Plavix) Mid-level Provider: Lizeth Dickens MD Time spent Greater than 30 minutes easily probably closer to [address] Spencer or other neurologist to evaluate utility of changing aspirin to Plavix or combination of both in the setting and to answer other nuances questions about Mobic in this setting as well as other preventative measures thank you. copies to: Lizeth Dickens MD; Adam Spencer MD, Andris E MD Jul 13, 2016 19:09
[2016-07-14] MEDS ORDERED: cefTRIAXone Inj 2,000 MG in Dextrose 5% Minibag Plus 50 ML IV SCH (08:30)
== END 2016-07-13 17:31 | disposition home or self-care (01) | DRG 689 ==
LOC: SED 20:37 → OSC 23:39
PROVIDERS: ADMIT Internal Medicine; ATTEND Internal Medicine
DX: N39.0 Urinary tract infection, site not specified (principal); G93.40 Encephalopathy, unspecified; G45.9 Transient cerebral ischemic attack, unspecified; E11.9 Type 2 diabetes mellitus without complications; I10 Essential (primary) hypertension; E78.5 Hyperlipidemia, unspecified; E86.0 Dehydration